=== PATIENT | female | born 2000 | race Two or more races ===

== ENCOUNTER 2021-04-15 12:31 | Emergency (ER) | payer MEDICAID ==
[~2021-04-15] VITALS: Ht 165.1 cm; Wt 74.8 kg
--- NOTE | 2021-04-15 13:23 | NUR ---
PT IS IN ROOM #2B. DR BLANDON EVALUATED THE PT.
[2021-04-15] MEDS ORDERED: NAPROXEN 500 MG TABLET PO ONE (13:30)
[2021-04-15] MEDS ORDERED: NAPROXEN 500 MG TABLET ONE (13:30)
[2021-04-15] MEDS ORDERED: NAPR-1009 PO (13:53)
[2021-04-15 14:01] VITALS: BP 131/68
--- NOTE | 2021-04-15 14:01 | NUR ---
PT WAS D/C'd TO HOME. D/C INSTRUCTIONS GIVEN TO THE PT BY DR BLANDON.
== END 2021-04-15 14:18 | disposition home or self-care (01) ==
LOC: ER 12:31
DX: M25.562 Pain in left knee (principal); M76.9 Unspecified enthesopathy, lower limb, excluding foot; G43.909 Migraine, unspecified, not intractable, without status migrainosus; Z79.899 Other long term (current) drug therapy
CPT/HCPCS: 73590; A4663